=== PATIENT | male | born 1930 | race Caucasian/White ===

== ENCOUNTER 2017-05-15 05:26 | Inpatient (IN) | payer OTHER ==
[2017-04-24 09:52] LABS: URINE BILIRUBIN NEGATIVE (Negative); URINE BLOOD NEGATIVE (Negative); URINE COLOR YELLOW; URINE GLUCOSE-RANDOM* NEGATIVE (Negative); URINE KETONES NEGATIVE (Negative); URINE LEUKOCYTES-REFLEX NEGATIVE (Negative); URINE PROTEIN (DIPSTICK) NEGATIVE (Negative); URINE SPECIFIC GRAVITY 1.015 (1.003-1.035); URINE UROBILINOGEN 0.2 E.U./dl (0.2-1.0)
[2017-04-24 09:53] LABS: HEMATOCRIT 40.6 % (42.0-52.0); HEMOGLOBIN 13.1 gm/dL (14.0-18.0); MCH 28.9 pg (26.0-34.0); MCHC 32.2 g/dL (28.0-37.0); MCV 89.9 fL (80.0-100.0); RBC 4.52 mil/uL (4.50-6.00); RDW 13.7 % (10.5-14.5); WBC 6.9 thou/uL (4.0-11.0)
[2017-04-24 10:00] LABS: ALBUMIN 3.7 g/dL (3.4-5.0); CALCIUM 8.9 mg/dL (8.5-10.1); CREATININE 0.9 mg/dL (0.7-1.3); POTASSIUM 3.7 mmol/L (3.5-5.1)
[2017-04-24 10:08] LABS: INR 1.1; PROTIME 11.1 Seconds (9.3-11.4)
[~2017-05-15] VITALS: Ht 172.7 cm; Wt 74.8 kg
[2017-05-15] VITALS (7 sets, daily range): BP systolic 105–153; BP diastolic 59–90
--- NOTE | ~2017-05-15 | EKG ---
[address] [address] ELECTROCARDIOGRAM REPORT Name: LOBITO HANEY Room #: PRE IN [facility]#: [id number] Admission: Attend Phys: Rick Zarate MD Discharge: Date of : 32 Report #: [id number] THIS REPORT FOR: //name// [facility] Test Date: 2017-04-24 Test Time: 09:48:22 Pat Name: LOBITO REYESCONTRERAS Department: Room: Gender: M Instructor Bridge: HUMBERTO BOWLES : 1930 Requested By: Rick Zarate Order Number: [id number] MD: Dayo Khanna Measurements Intervals [place] Rate: 82 P: 38 CO: 247 QRS: 74 QRSD: 81 T: 2 QT: 384 QTc: 449 Interpretive Statements Sinus rhythm Prolonged CO interval Borderline repolarization abnormality Compared to ECG 12/08/2008 06:49:52 No significant changes Electronically Signed On 04-24-2017 17:01:11 HAND ENDBAND CUTTER by Dayo Khanna [email or web address] <ELECTRONICALLY SIGNED> By: Dayo Khanna MD 04/24/17 1701 0948 7 Dayo Khanna MD /PALOMO
--- NOTE | ~2017-05-15 | O ---
[facility] [place] [address] OPERATIVE REPORT Name: LOBITO HANEY Room #: 150-3 ADM IN M.R.#: [id number] Admission: 05/15/17 Attend Phys: Rick Zarate MD Discharge: Date of : 32 Report #: [id number] THIS REPORT FOR: //name// CC: Rafa Zarate DATE OF SERVICE: 05/15/2017 PREOPERATIVE DIAGNOSIS: Left knee osteoarthritis. POSTOPERATIVE DIAGNOSIS: Left knee osteoarthritis. PROCEDURE: Left total knee arthroplasty. SURGEON: Rick Zarate M.D. BICYCLE ASSEMBLER: Margoth Perez PA-C. INDICATIONS FOR BICYCLE ASSEMBLER: Throughout the case, extensive retraction and manipulation of knee was required, this was afforded to me by my case assistant. ANESTHESIA: LMA with an adductor canal block. IMPLANTS: [employer] size 6 Legion cobalt chrome femur, size 6 tibia, size 9 polyethylene and size 35 patella. TOURNIQUET TIME: 57 minutes. ESTIMATED BLOOD LOSS: 50 mL. COMPLICATIONS: None. SPECIMENS: None. CONDITION UPON LEAVING THE OR: Stable. INDICATION FOR PROCEDURE: The patient is an 86-year-old gentleman with severe left knee osteoarthritis who had failed conservative treatment for this and after discussion with him, he elected for left total knee arthroplasty. DESCRIPTION OF PROCEDURE: Risks, benefits, alternatives, complications were discussed in detail with the patient including but not limited to risk of anesthesia, risk of damage to nerves, arteries or other blood vessels, infection, bleeding, risk for continued knee pain, need for reoperation. Informed consent was obtained from the patient. Left knee was appropriately marked in the preoperative holding area. IV Ancef was given for preoperative [facility] [address] [address] OPERATIVE REPORT Name: LOBITO HANEY Room #: 150-3 ADM IN M.R.#: [id number] Admission: 05/15/17 Attend Phys: Rick Zarate MD Discharge: Date of : 32 Report #: [id number] antibiotic. An adductor canal block was placed by anesthesia, was brought to the operating room and placed in supine position on operating room table. LMA anesthesia was induced without complication. Tourniquet was placed on the left thigh. Left lower extremity was prepped and draped in normal sterile fashion. Timeout was performed properly identifying the patient, procedure as well as instrumentation. All in the operating room were in agreement. Left lower extremity was prepped and draped in normal sterile fashion. Timeout was performed properly identifying the patient, procedure as well as the instrumentation and implants. All in the operating room were in agreement. Left lower extremity was exsanguinated, tourniquet was inflated. Tourniquet time was 57 minutes. Standard midline approach to knee was made with #10 blade. Dissection was taken down sharply to the fascia and deep flaps were developed medially and laterally. Fresh 10 blade was used to make a medial parapatellar arthrotomy and the knee was inspected. There was extensive tricompartmental osteoarthritic change. The anterior horns of the meniscus were removed sharply. The patella was everted, knee was flexed. ACL and PCL were removed sharply. Drill was used to gain access to canal of the femur and distal femoral cutting block was pinned in place. Distal femoral cut was made. The femur was sized, found to be a size 6. The size 6, 4-in-1 cutting block was placed. Anterior, posterior and chamfer cuts were made. Attention was turned to the tibia. The knee was hyperflexed and remainder of the meniscus was removed with Bovie cautery. Drill was used to gain access to the canal of the tibia and intramedullary alignment was used. Resection was based off the lateral plateau and resection was made. Posterior osteophytes were removed from the femur and flexion and extension gaps were checked and found to be just mildly tight medially in extension and so a limited medial release was performed by sharply taking down the MCL off the medial plateau and removing the medial osteophytes. This balanced the knee well. The tibia was sized, found to be a size 6. A size 6 tibial trial was placed, size 6 femoral trial was placed and the box cut was made. The post was placed. The 9 polyethylene trial was placed. Knee was taken through range of motion, found to be stable, found to have good balance in flexion, extension both medially and laterally. After this, 9 mm was taken off the posterior surface of the patella and a size 35 patellar trial button was placed. Knee was taken through range of motion, found to be stable, found to have good patellar tracking and balance. All trial components removed. Bony ends were thoroughly irrigated with normal saline. A final size 6 tibia, size 6 Legion cobalt chrome posterior stabilized femur and a size 35 patella were cemented in place using standard cementation techniques. While the cement cured, a periarticular injection consisting of ropivacaine, epinephrine, Toradol and morphine was placed in the surrounding knee joint capsule. After the cement cured, tourniquet was deflated. Hemostasis was obtained with Bovie cautery. 1 gram of vancomycin was placed in the joint. A final size 9 polyethylene was placed. The fascia was closed with 0 Vicryl, skin was closed with 2-0 Vicryl, 3-0 Monocryl, Dermabond and NATHAN dressing were applied. The patient tolerated [address] [address] OPERATIVE REPORT Name: LOBITO HANEY Room #: 150-3 [facility] IN M.R.#: [id number] Admission: 05/15/17 Attend Phys: Rick Zarate MD Discharge: Date of : 32 Report #: [id number] this procedure well and went to the recovery room under the care of anesthesia postoperatively. By: 1701 1737 Rick Zarate MD /nt
[~2017-05-15 05:26] MED LIST: HYDROCODON-ACE1 EA11 PO; NORVASC10 MG PO; NORVASC5 M1 PO; ROXICODONE5 MG PO; TYLENOL EXTRA500 MG PO; VITAMIN D31000 UNI2 PO
[2017-05-16 01:47] VITALS: BP 127/73
[2017-05-16 02:17] VITALS: BP 127/73
[2017-05-16 05:28] VITALS: BP 132/77
[2017-05-16 05:32] LABS: HEMATOCRIT 33.4 % (42.0-52.0); HEMOGLOBIN 11.1 gm/dL (14.0-18.0); MCH 29.2 pg (26.0-34.0); MCHC 33.1 g/dL (28.0-37.0); MCV 88.2 fL (80.0-100.0); RBC 3.78 mil/uL (4.50-6.00); RDW 13.4 % (10.5-14.5)
[2017-05-16 07:45] VITALS: BP 127/76
[2017-05-16 15:06] VITALS: BP 127/76
== END 2017-05-16 16:40 | disposition home health service (06) | DRG 470 ==
LOC: 4N 05:26 → TBA 05:26 → PRE 08:22 → 4N 18:23 → ENTRNSPT 05-16 18:47
PROVIDERS: Orthopaedic Surgery
PROC: 0SRD0J9 Replacement of Left Knee Joint with Synthetic Substitute, Cemented, Open Approach (ICD-10-PCS; principal; 2017-05-15)
DX: M17.12 Unilateral primary osteoarthritis, left knee (principal); I10 Essential (primary) hypertension; Z85.46 Personal history of malignant neoplasm of prostate; Z90.49 Acquired absence of other specified parts of digestive tract; Z98.42 Cataract extraction status, left eye; Z98.41 Cataract extraction status, right eye; Z86.73 Personal history of transient ischemic attack (TIA), and cerebral infarction without residual deficits; Z79.899 Other long term (current) drug therapy
CPT/HCPCS: 10790; 50010; 50101; 50415; 50915; 50954; 51130; 51225; 51771; 53000; 53078; 53364; 54118; 56527; 56528; 57095; 62110; 62900; 65060; 70005

== ENCOUNTER 2017-06-08 20:15 | Emergency (ER) | payer OTHER ==
[~2017-06-08] VITALS: Ht 172.7 cm; Wt 72.6 kg
[2017-06-08 20:15] VITALS: BP 174/117
== END 2017-06-08 21:58 | disposition home or self-care (01) ==
LOC: ER 20:15
DX: S09.90XA Unspecified injury of head, initial encounter (principal); K59.00 Constipation, unspecified; I10 Essential (primary) hypertension; Z90.49 Acquired absence of other specified parts of digestive tract; Z85.46 Personal history of malignant neoplasm of prostate; W10.9XXA Fall (on) (from) unspecified stairs and steps, initial encounter; Y93.89 Activity, other specified; Y92.89 Other specified places as the place of occurrence of the external cause; Y99.8 Other external cause status

== ENCOUNTER → 2017-07-10 | Outpatient (CLI) | payer OTHER | LOC: ULTRA 11:04 | DX: M79.605 Pain in left leg (principal); M79.89 Other specified soft tissue disorders; Z98.890 Other specified postprocedural states ==

== ENCOUNTER → 2018-08-10 | Outpatient (CLI) | payer OTHER | LOC: RAD 11:04 | DX: M51.36 Other intervertebral disc degeneration, lumbar region (principal); M48.07 Spinal stenosis, lumbosacral region; M43.16 Spondylolisthesis, lumbar region; I70.0 Atherosclerosis of aorta ==